=== PATIENT | female | born 1990 | race African-American/Black ===

== ENCOUNTER 2016-09-19 21:17 | Emergency (ER) | payer MEDICAID ==
[2016-09-19 21:31] VITALS: BP 146/102
== END 2016-09-19 22:30 | disposition left against medical advice (07) ==
LOC: ER 21:17
DX: Z53.9 Procedure and treatment not carried out, unspecified reason (principal); R51 Headache

== ENCOUNTER 2017-03-13 20:35 | Emergency (ER) | payer MEDICAID ==
[2017-03-13 20:52] VITALS: BP 127/93
[2017-03-13 22:00] LABS: APPEARANCE,URINE CLEAR; BILIRUBIN,URINE NEGATIVE (NEGATIVE); GLUCOSE, URINE NEGATIVE (NEGATIVE); KETONES,URINE 20 mg/dL (NEGATIVE); LEUKOCYTE ESTERASE,URINE NEGATIVE (NEGATIVE); NITRITE,URINE POSITIVE (NEGATIVE); PROTEIN,URINE 30 mg/dL (NEGATIVE); URINE SPECIFIC GRAVITY 1.027
[2017-03-13 22:57] LABS: ABSOLUTE EOSINOPHILS # (AUTO) 0.1 10^3/uL (0.0-0.6); ABSOLUTE LYMPHOCYTES (AUTO) 1.4 10^3/uL (0.5-4.7); ABSOLUTE MONOCYTES (AUTO) 0.3 10^3/uL (0.1-1.4); ABSOLUTE NEUT (AUTO) 2.8 10^3/uL (1.7-8.2); EOSINOPHILS % (AUTO) 2.1 % (0-6); HEMATOCRIT 27.4 % (36.0-47.0); HEMOGLOBIN 8.2 g/dL (12.0-15.5); HGB HCT DIFFERENCE -2.8; LYMPHOCYTES % (AUTO) 30.2 % (13-45); MEAN CORPUSCULAR HGB CONC 29.9 g/dL (32.0-36.0); RED CELL DISTRIBUTION WIDTH 18.8 % (11.5-14.0); SEGMENTED NEUTROPHILS % (AUTO) 59.7 % (42-78); WHITE BLOOD COUNT 4.7 10^3/uL (4.0-10.5)
[2017-03-13 23:12] LABS: ALANINE AMINOTRANSFERASE 25 U/L (9-52); ALBUMIN 4.3 g/dL (3.5-5.0); ALKALINE PHOSPHATASE 56 U/L (38-126); ANION GAP 11 (5-19); ASPARTATE AMINO TRANSFERASE 20 U/L (14-36); BILIRUBIN,DIRECT 0.2 mg/dL (0.0-0.4); BILIRUBIN,TOTAL 0.5 mg/dL (0.2-1.3); BLOOD UREA NITROGEN 12 mg/dL (7-20); CALCIUM 9.5 mg/dL (8.4-10.2); CARBON DIOXIDE 24 mmol/L (22-30); CHLORIDE 105 mmol/L (98-107); GLUCOSE 106 mg/dL (75-110); LIPASE 77.2 U/L (23-300); POTASSIUM 4.1 mmol/L (3.6-5.0); TOTAL PROTEIN 7.6 g/dL (6.3-8.2)
[2017-03-13 23:22] LABS: ANISOCYTOSIS 2+; HYPOCHROMASIA 2+; MICROCYTOSIS 3+; OVALOCYTES 1+; POIKILOCYTOSIS 1+; POLYCHROMASIA SLIGHT; TEAR DROP CELLS SLIGHT
[2017-03-13 23:23] LABS: MEAN CORPUSCULAR VOLUME 64 fl (80-97)
[2017-03-13] MEDS ORDERED: ONDANSETRON HCL INJ/PF 4 MG/2 ML SDV IV ONE (23:42)
[2017-03-13] MEDS ORDERED: NORMAL SALINE 1000 ML 1,000 ML IV ONE (23:42)
[2017-03-13] MEDS ORDERED: MORPHINE SULFATE 10 MG/ML INJ IV PRN (23:42)
--- NOTE | 2017-03-14 00:41 | ER Document Report ---
ED General - General Chief Complaint: Abdominal Pain Stated Complaint: ABDOMINAL PAIN Notes: Patient is a 26-year-old female without past medical history, prior C-sections, who presents with 24 hours of right lower quadrant abdominal pain nausea and anorexia. She does describe the pain in the right lower quadrant as a severe, constant, aching pain. Notes that movement worsens the pain. Nothing improves the pain. She denies any history of similar symptoms in the past. Patient states that 2 days ago she did begin develop dysuria and lower abdominal discomfort. She took 2 tablets of an unspecified antibiotic with some improvement of her symptoms but states they returned today. She has not had any fever or constitutional symptoms. She has not seen a primary care doctor regarding today's concerns. She denies any vaginal bleeding or discharge. She denies any ongoing dysuria. TRAVEL OUTSIDE OF THE [place] IN LAST 30 DAYS: No - Related Data Allergies/Adverse Reactions: oxycodone HCl [From Percocet] Allergy (Mild, Verified 03/13/17 20:46) rash Past Medical History - General Information source: Patient - Social History Smoking Status: Never Smoker Frequency of alcohol use: None Drug Abuse: None Lives with: Spouse/Significant other Family History: Reviewed & Not Pertinent - Past Medical History Cardiac Medical History: Reports: Hx Hypertension - GHTN after 4th child Neurological Medical History: Reports: Hx Migraine Renal/ Medical History: Denies: Hx Peritoneal Dialysis Past Surgical History: Reports: Hx Section - x 4, Hx Orthopedic Surgery - c 4-6 fusion - Immunizations Hx Diphtheria, Pertussis, Tetanus Vaccination: Yes Review of Systems - Review of Systems Notes: Constitutional: Negative for fever. HENT: Negative for sore throat. Eyes: Negative for visual changes. Cardiovascular: Negative for chest pain. Respiratory: Negative for shortness of breath. Gastrointestinal: Positive for abdominal pain and nausea Genitourinary: Negative for dysuria. Musculoskeletal: Negative for back pain. Skin: Negative for rash. Neurological: Negative for headaches, weakness or numbness. 10 point ROS negative except as marked above and in HPI. Physical Exam - Vital signs Vitals: Temp Pulse Resp BP Pulse Ox 99.4 F 90 18 127/93 H 100 03/13/17 20:45 03/13/17 20:45 03/13/17 20:45 03/13/17 20:45 03/13/17 20:45 Interpretation: Normal Notes: PHYSICAL EXAMINATION: GENERAL: Well-appearing, well-nourished and in no acute distress. HEAD: Atraumatic, normocephalic. EYES: Pupils equal round and reactive to light, extraocular movements intact, sclera anicteric, conjunctiva are normal. ENT: nares patent, oropharynx clear without exudates. Moist mucous membranes. NECK: Normal range of motion, supple without lymphadenopathy LUNGS: Breath sounds clear to auscultation bilaterally and equal. No wheezes rales or rhonchi. HEART: Regular rate and rhythm without murmurs ABDOMEN: Soft, focal right lower quadrant abdominal tenderness without rebound or guarding. Otherwise no localized tenderness EXTREMITIES: Normal range of motion, no pitting or edema. No cyanosis. NEUROLOGICAL: No focal neurological deficits. Moves all extremities spontaneously and on command. PSYCH: Normal mood, normal affect. SKIN: Warm, Dry, normal turgor, no rashes or lesions noted. Course - Re-evaluation Re-evalutation: 03/14/17 00:40 Patient presents with 24 hours of right lower quadrant abdominal pain with associated nausea and anorexia. She does have focal right lower quadrant abdominal tenderness on palpation without rebound or guarding. There is a moderate suspicion for an acute appendicitis based on exam and history. Laboratories are noted to be unremarkable. Patient has been taking leftover antibiotics which will skew the results of her urinalysis which does suggest a possible urinary tract infection. She has also been complaining of dysuria although she has no flank tenderness on examination no significant tenderness to the suprapubic region. Will proceed with CT abdomen pelvis and reassess 03/14/17 02:44 CT abdomen pelvis does not show any evidence of an acute appendicitis with the appendix being well visualized. There is a large right ovarian cyst which would account for patient having more of a right adnexal tenderness versus right lower quadrant abdominal tenderness. Will provide analgesia and recommend [facility]YCL[facility] ASSISTANT follow-up as an outpatient. At this time will discharge with return precautions and follow-up recommendations. Verbal discharge instructions given a the bedside and opportunity for questions given. Medication warnings reviewed. Patient is in agreement with this plan and has verbalized understanding of return precautions and the need for primary care follow-up in the next 24-72 hours. - Vital Signs Vital signs: Temp Pulse Resp BP Pulse Ox 99.4 F 90 18 127/93 H 100 03/13/17 20:45 03/13/17 20:45 03/13/17 20:45 03/13/17 20:45 03/13/17 20:45 - Laboratory Result Diagrams: 03/13/17 22:37 03/13/17 22:37 Laboratory results interpreted by me: 03/13/17 03/13/17 03/13/17 21:45 22:37 22:37 Hgb 8.2 L Hct 27.4 L MCV 64 L MCH 19.0 L MCHC 29.9 L RDW 18.8 H Creatinine 0.50 L Urine Protein 30 H Urine Ketones 20 H Urine Nitrite POSITIVE H Urine Urobilinogen 4.0 H - Diagnostic Test Radiology reviewed: Reports reviewed Discharge - Discharge Clinical Impression: Right lower quadrant abdominal pain, Right ovarian cyst Condition: Good Disposition: HOME, SELF-CARE Additional Instructions: Your CT scan does not show any evidence of an acute appendicitis but does show a right ovarian cyst. For your pain: Take ibuprofen 600 mg and acetaminophen 1000 mg every 6 hours together as needed for pain. If this does not control your pain you may take 15 mg of oral morphine every 4 hours as needed. Please be very careful about using the oral morphine and only use this for severe pain. Return if your worsening of your pain, persistent vomiting, pass out, or have any other symptoms that are worrisome to you. Prescriptions: Morphine Sulfate [Morphine Ir 15 mg Tablet] 15 mg PO Q4HP PRN #12 tablet PRN Reason: Referrals: ARNOL YATES MD [Primary Care Provider] - Follow up as needed SHAN GAVIRIA DO [[facility]] - Follow up as needed
--- NOTE | 2017-03-14 02:26 | RADIOLOGY REPORT (SQ) ---
EXAMINATION: POSTCONTRAST ABDOMEN AND PELVIC CT EXAMINATION. REFERRAL DIAGNOSIS: Lower quadrant abdominal pain. COMPARISONS: No comparisons are available. PROCEDURE: Using low-dose helical technique, thin section axial images were performed through the abdomen and pelvis after the uncomplicated intravenous administration of nonionic iodinated contrast material. Creatinine equals 0.50. FINDINGS: The gas-filled appendix clearly visualized and appears normal. No diverticulitis or inflammatory bowel disease. Noncalcified probable 2.5 cm right ovarian cyst. Uterus is grossly normal. Bilateral tubal ligation clips. No free pelvic fluid or pelvic lymphadenopathy. The liver, spleen, fluid-filled gallbladder, pancreas, stomach, duodenum, adrenal glands kidneys and urinary bladder appear normal. Bones are normal. IMPRESSION: 1. 2.5 cm probable right ovarian cyst. No follow-up recommendations as described in the following reference. Recommendations for f/u of ovarian anechoic simple cyst, simple cyst with single thin <3 mm septation, or focal calcification in wall of cyst (1): Pre-menopause: <= 5 cm No follow-up imaging recommended >5 cm - <=7 cm US f/u annually >7 cm Consider MR w/IVC or surgical evaluation Post-menopause (>=1 year from last menstrual period): <=3 cm No follow-up imaging recommended >3 cm - <=7 cm US f/u annually >7 cm Consider MR w/IVC or surgical evaluation (1) Recommendations based on 2010 SRU Consensus Conference Statement on the Management of Asymptomatic Ovarian and Other Adnexal Cysts Imaged at US: Radiology. 2009;256(3):943-54
[2017-03-14] MEDS ORDERED: LIDOCAINE 5% (700 MG) TRANSDERMAL ADH..PATCH TP ONE (02:48)
[2017-03-14] MEDS ORDERED: KETOROLAC TROMETHAMINE INJ/PF 30 MG/1 ML SDV IV ONE (02:48)
[2017-03-15 14:11] LABS: PATH REVIEW PATHOLOGIST REVIEWED
== END 2017-03-14 03:20 | disposition home or self-care (01) ==
LOC: ER 20:35
DX: N83.201 Unspecified ovarian cyst, right side (principal); R10.31 Right lower quadrant pain; R11.0 Nausea; R63.0 Anorexia; R30.0 Dysuria; Z88.5 Allergy status to narcotic agent
CPT/HCPCS: 99284; 96374; 36415; 83690; 85025; 81025; 80053; 81001; 74177; J1885; J3490

== ENCOUNTER 2017-05-28 08:52 | Emergency (ER) | payer MEDICAID ==
[2017-05-28 09:11] VITALS: BP 121/87
--- NOTE | 2017-05-28 09:22 | ER Document Report ---
ED GI/ - General Chief Complaint: Abdominal Pain Stated Complaint: ABDOMINAL PAIN Time Seen by Provider: 05/28/17 09:21 Mode of Arrival: Ambulatory Information source: Patient Notes: 27-year-old female complaining of intermittent low midline suprapubic discomfort nausea after eating since earlier this week. No vaginal discharge. She is complaining of urinary urgency but no dysuria or frequency. No fever or chills. No diarrhea or constipation. , 4 C-sections, tubal clamping-1 failed (unsure which), history of ovarian cyst which is different than this pain. She does not have any pain at this time. TRAVEL OUTSIDE OF THE [place] IN LAST 30 DAYS: No - Related Data Allergies/Adverse Reactions: oxycodone HCl [From Percocet] Allergy (Mild, Verified 05/28/17 09:44) rash Past Medical History - General Information source: Patient - Social History Smoking Status: Current Every Day Smoker - vapes nicotine Frequency of alcohol use: None Drug Abuse: None Lives with: Spouse/Significant other Family History: Reviewed & Not Pertinent - Medical History Notes: anemia - Past Medical History Cardiac Medical History: Reports: Hx Hypertension - GHTN after 4th child Neurological Medical History: Reports: Hx Migraine Renal/ Medical History: Denies: Hx Peritoneal Dialysis Past Surgical History: Reports: Hx Section - x 4, Hx Orthopedic Surgery - c 4-6 fusion - Immunizations Hx Diphtheria, Pertussis, Tetanus Vaccination: Yes Review of Systems - Review of Systems Constitutional: No symptoms reported EENT: No symptoms reported Cardiovascular: No symptoms reported Respiratory: No symptoms reported Gastrointestinal: See HPI Genitourinary: No symptoms reported Female Genitourinary: No symptoms reported Musculoskeletal: No symptoms reported Skin: No symptoms reported Hematologic/Lymphatic: No symptoms reported Neurological/Psychological: No symptoms reported Physical Exam - Vital signs Vitals: Temp Pulse Resp BP Pulse Ox 98.6 F 87 14 121/87 H 100 05/28/17 09:10 05/28/17 09:10 05/28/17 09:10 05/28/17 09:10 05/28/17 09:10 Interpretation: Normal - General General appearance: Appears well, Alert In distress: None - HEENT Head: Normocephalic, Atraumatic Eyes: Normal Conjunctiva: Normal Pupils: PERRL Tympanic membrane: Normal Mucous membranes: Normal Pharynx: Normal Neck: Supple. No: Lymphadenopathy - Respiratory Respiratory status: No respiratory distress Chest status: Nontender Breath sounds: Normal Chest palpation: Normal - Cardiovascular Rhythm: Regular Heart sounds: Normal auscultation Murmur: No - Abdominal Inspection: Normal Distension: No distension Bowel sounds: Normal Tenderness: Tender - mild suprapubic Organomegaly: No organomegaly - Genitourinary External exam: Normal Speculum exam: Normal Vaginal bleeding: None Bimanuel exam: Normal - Back Back: Normal, Nontender. No: CVA tenderness - Extremities General upper extremity: Normal inspection, Nontender, Normal color, Normal ROM , Normal temperature General lower extremity: Normal inspection, Nontender, Normal color, Normal ROM , Normal temperature, Normal weight bearing. No: Owen's sign - Neurological Neuro grossly intact: Yes Cognition: Normal Orientation: AAOx4 [place] Coma Scale Eye Opening: Spontaneous [place] Coma Scale Verbal: Oriented Fabian Coma Scale Motor: Obeys Commands [place] Coma Scale Total: 15 Speech: Normal Motor strength normal: LUE, RUE, LLE, RLE Sensory: Normal - Psychological Associated symptoms: Normal affect, Normal mood - Skin Skin Temperature: Warm Skin Moisture: Dry Skin Color: Normal Course - Re-evaluation Re-evalutation: 05/28/17 10:52 no dizziness when stands. Microcytic hemoglobin is 7.8. She is not having heavy menses at this time. She takes 1 [id number] iron per day. 05/28/17 11:11 Wet prep is negative and the gonorrhea and Chlamydia are pending. - Vital Signs Vital signs: Temp Pulse Resp BP Pulse Ox 98.6 F 87 14 121/87 H 100 05/28/17 09:10 05/28/17 09:10 05/28/17 09:10 05/28/17 09:10 05/28/17 09:10 - Laboratory Result Diagrams: 05/28/17 09:30 05/28/17 09:30 Laboratory results interpreted by me: 05/28/17 05/28/17 09:30 09:30 Hgb 7.8 L Hct 26.3 L MCV 63 L MCH 18.7 L MCHC 29.5 L RDW 19.6 H Chloride 109 H Creatinine 0.46 L Discharge - Discharge Clinical Impression: chronic anemia, Lower abdominal pain Condition: Good Disposition: HOME, SELF-CARE Instructions: Abdominal Pain ([facility]), Anemia, Iron Deficiency ([facility]) Additional Instructions: Take iron twice a day, take stool softeners he will not get constipated Follow up with [facility] as they are your primary care doctor Call me in 3 hours for the pelvic culture results at [phone] return to the er if worse copy of labs given to you Referrals: REUBEN YOUNG MD [Primary Care Provider] - Follow up as needed
[2017-05-28 09:49] LABS: ABSOLUTE EOSINOPHILS # (AUTO) 0.1 10^3/uL (0.0-0.6); ABSOLUTE MONOCYTES (AUTO) 0.2 10^3/uL (0.1-1.4); ABSOLUTE NEUT (AUTO) 2.7 10^3/uL (1.7-8.2); EOSINOPHILS % (AUTO) 1.3 % (0-6); HEMATOCRIT 26.3 % (36.0-47.0); HGB HCT DIFFERENCE -2.9; LYMPHOCYTES % (AUTO) 25.5 % (13-45); MEAN CORPUSCULAR HEMOGLOBIN 18.7 pg (27.0-33.4); MEAN CORPUSCULAR HGB CONC 29.5 g/dL (32.0-36.0); MONOCYTES % (AUTO) 5.9 % (3-13); RED BLOOD COUNT 4.15 10^6/uL (3.72-5.28); RED CELL DISTRIBUTION WIDTH 19.6 % (11.5-14.0); SEGMENTED NEUTROPHILS % (AUTO) 66.3 % (42-78); WHITE BLOOD COUNT 4.1 10^3/uL (4.0-10.5)
[2017-05-28 09:56] LABS: HEMOGLOBIN 7.8 g/dL (12.0-15.5)
[2017-05-28 10:03] LABS: ALANINE AMINOTRANSFERASE 17 U/L (9-52); ALBUMIN 4.5 g/dL (3.5-5.0); ALKALINE PHOSPHATASE 53 U/L (38-126); ANION GAP 12 (5-19); ASPARTATE AMINO TRANSFERASE 24 U/L (14-36); BILIRUBIN,DIRECT 0.2 mg/dL (0.0-0.4); BILIRUBIN,TOTAL 0.2 mg/dL (0.2-1.3); BLOOD UREA NITROGEN 15 mg/dL (7-20); CALCIUM 9.5 mg/dL (8.4-10.2); CARBON DIOXIDE 23 mmol/L (22-30); CHLORIDE 109 mmol/L (98-107); CREATININE RESULT 0.46 mg/dL (0.52-1.25); GLUCOSE 102 mg/dL (75-110); LIPASE 139.4 U/L (23-300); POTASSIUM 4.2 mmol/L (3.6-5.0); SODIUM 143.9 mmol/L (137-145); TOTAL PROTEIN 7.6 g/dL (6.3-8.2)
[2017-05-28 10:04] LABS: APPEARANCE,URINE CLEAR; BILIRUBIN,URINE NEGATIVE (NEGATIVE); GLUCOSE, URINE NEGATIVE (NEGATIVE); KETONES,URINE NEGATIVE (NEGATIVE); LEUKOCYTE ESTERASE,URINE NEGATIVE (NEGATIVE); NITRITE,URINE NEGATIVE (NEGATIVE); PROTEIN,URINE NEGATIVE (NEGATIVE); UROBILINOGEN,URINE NEGATIVE mg/dL (<2.0)
[2017-05-28 10:14] LABS: MEAN CORPUSCULAR VOLUME 63 fl (80-97)
[2017-05-28 10:16] LABS: ANISOCYTOSIS 2+; MICROCYTOSIS 3+; OVALOCYTES SLIGHT; POIKILOCYTOSIS SLIGHT; POLYCHROMASIA SLIGHT; ROULEAUX SLIGHT
[2017-05-28 10:17] LABS: HYPOCHROMASIA 1+
[2017-06-01 10:57] LABS: PATH REVIEW PATHOLOGIST REVIEWED
== END 2017-05-28 11:25 | disposition home or self-care (01) ==
LOC: ER 08:52
DX: D64.9 Anemia, unspecified (principal); R10.30 Lower abdominal pain, unspecified; R39.15 Urgency of urination; F17.200 Nicotine dependence, unspecified, uncomplicated
CPT/HCPCS: 36415; 80053; 81001; 83690; 84703; 85025; 87086; 87210; 87491; 87591; 99284

== ENCOUNTER 2017-11-10 09:33 | Day surgery (SDC) | payer MEDICAID ==
[~2017-11-10 09:33] MED LIST: CEFAZOLIN 1 GM/D5W RTU 1 GM/50 ML RTUPB IV PRN
[2017-11-10] MEDS ORDERED: LIDOCAINE 0.5% INJ-PF (5 MG/ML) 50 ML SDV ONE (10:00)
[2017-11-10] MEDS ORDERED: BUPIVACAINE HCL 0.25 % INJ/PF (2.5 MG/1 ML) 30 ML VIAL ONE (10:00)
[2017-11-10 10:24] LABS: HEMATOCRIT 24.8 % (36.0-47.0); MEAN CORPUSCULAR HEMOGLOBIN 18.3 pg (27.0-33.4); MEAN CORPUSCULAR HGB CONC 29.9 g/dL (32.0-36.0); PLATELET COUNT 254 10^3/uL (150-450); RED BLOOD COUNT 4.04 10^6/uL (3.72-5.28); RED CELL DISTRIBUTION WIDTH 19.7 % (11.5-14.0); WHITE BLOOD COUNT 3.2 10^3/uL (4.0-10.5)
[2017-11-10 11:33] LABS: HEMOGLOBIN 7.4 g/dL (12.0-15.5)
[2017-11-10 11:34] LABS: MEAN CORPUSCULAR VOLUME 61 fl (80-97)
[2017-11-10] MEDS ORDERED: FENTANYL CITRATE INJ/PF 100 MCG/2 ML AMPUL ONE (12:01)
[2017-11-10] MEDS ORDERED: KETAMINE HCL INJ 500 MG/10 ML VIAL ONE (12:01)
[2017-11-10] MEDS ORDERED: MIDAZOLAM 2 MG/2 ML INJ ONE (12:02)
[2017-11-10] MEDS ORDERED: ACETAMINOPHEN 1,000 MG/100 ML RTUPB IV ONE (12:02)
[2017-11-10] MEDS ORDERED: PROPOFOL INJ 200 MG/20 ML VIAL IV ONE (12:02)
[2017-11-10] MEDS ORDERED: MICROFIBRILLAR COLLAGEN 1 GM PACK ONE (13:10)
--- NOTE | 2017-11-10 13:33 | Operative Report ---
Operative Report DATE OF SURGERY: 11/10/17 PREOPERATIVE DIAGNOSIS: Right wrist ganglion cyst, dorsal aspect POSTOPERATIVE DIAGNOSIS: Same OPERATION: Complete excision of right wrist dorsal aspect ganglion cyst SURGEON: REUBEN HILLS SWIFT TENDER: ERMIAS GERMAN ANESTHESIA: LMAC TISSUE REMOVED OR ALTERED: Right wrist ganglion cyst and contents COMPLICATIONS: None ESTIMATED BLOOD LOSS: 10 cc INTRAOPERATIVE FINDINGS: See below PROCEDURE: The patient was seen in the preop holding area the right wrist was marked. She was then taken to the main operating room where LMAC anesthesia was induced. The right arm was prepped and draped in sterile fashion. Surgical plan surgical timeout were conducted. The findings were significant for a multilobulated gland cyst on the dorsal aspect of the right wrist. Markings were made on the skin for a small transverse incision. The skin was anesthetized with 1% plain lidocaine. Approximately 2-1/2-3 cm incision was made with the knife. The underlying subcutaneous tissue was spread, and the multi lobulated chronic ganglion cyst was dissected from its surrounding tissue all the way to its point of origination which was the synovial sheath of the extensor compartment of the mid section of the right wrist. We placed a small hemostat at the base of the cyst which was in fact the urination point of the cyst which is approximately 1 cm in diameter. The cyst was amputated and passed off to pathology. The neck of the cyst was oversewed with a 2-0 Vicryl suture effectively ligating the stalk. Hemostasis was achieved using direct pinpoint cautery primarily to the sheath edge. Avitene was placed in the recess of the wound, the wound was closed including the extensor retinaculum with 3-0 Vicryl and the skin with 3-0 Vicryl and 4-0 Monocryl. Dermabond glue was applied. Bulky dressing applied. Patient tolerated procedure well, taken to recovery room in stable condition.
[2017-11-10] MEDS ORDERED: ONDANSETRON HCL INJ/PF 4 MG/2 ML SDV IV PRN (13:39)
[2017-11-10] MEDS ORDERED: DIPHENHYDRAMINE HCL 50 MG/ML VIAL IV PRN (13:39)
[2017-11-10] MEDS ORDERED: PROMETHAZINE HCL INJ 25 MG/1 ML VIAL IV PRN ×2 (13:39)
[2017-11-10] MEDS ORDERED: FENTANYL CITRATE INJ/PF 100 MCG/2 ML AMPUL IV PRN ×3 (13:39)
[2017-11-10] MEDS ORDERED: MEPERIDINE HCL/PF INJ 25 MG/1 ML DISP.SYRIN IV PRN (13:39)
--- NOTE | 2017-11-10 15:55 | Discharge Summary ---
Discharge Summary (SDC) - Discharge Final Diagnosis: ganglion cyst Date of Surgery: 11/10/17 Discharge Date: 11/10/17 Condition: Stable Forms: ASU Anesthesia D/C Instruction, Discharge POC-Surgical Service Treatment or Instructions: WOUND CARE: 1) Leave outer dressing intact for two days. At which point you may remove the dressing but leave steri strips and skin glue beneath in place. Cover dressing with large band aid or gauze and tape after removal of outer dressing. 2) Once outer gauze is removed, you may shower with warm water and soap, pat the area dry, and cover again. 3) Keep are elevated. Pain management: 1) You make take one Toradol by mouth every six hours as needed for pain. FOLLOW UP: 1) You may follow up at [facility] in 10-14 days. Call clinic with any questions/concerns. Prescriptions: Ketorolac Tromethamine [Toradol 10 mg Tablet] 10 mg PO Q6HP PRN #20 tablet PRN Reason: Referrals: REUBEN RUBY MD [ACTIVE STAFF] - 11/22/17 1:15 pm Discharge Diet: As Tolerated Respiratory Treatments at Home: Deep Breathing/Coughing Discharge Activity: Activity As Tolerated, Balance Activity w/Rest, No Lifting Over 10 Pounds, No Lifting/Push/Pulling, Slowly Increase Activity, Walk Frequently Home Care Assistance: None Needed Report the Following to Your Physician Immediately: Shortness of Breath, Nausea , Vomiting, Increase in Pain, Fever over 101 Degrees, Unusual Bleeding, Redness , Swelling, Warmth, Increased Soreness, Drainage-Foul Smelling, Numbness, Tingling Sensation, IV Site Infection Signs
[2017-11-10 15:57] VITALS: BP 121/76
[2017-11-10] MEDS ORDERED: LIDOCAINE 2% INJ-PF (20 MG/ML) 2 ML AMPUL ONE (20:40)
[2017-11-10] MEDS ORDERED: METOCLOPRAMIDE HCL INJ/PF 10 MG/2 ML SDV ONE (20:40)
[2017-11-10] MEDS ORDERED: GLYCOPYRROLATE INJ 0.4 MG/2 ML VIAL ONE (20:40)
[2017-11-10] MEDS ORDERED: KETOROLAC TROMETHAMINE 60 MG/2 ML SDV ONE (20:40)
[2017-11-10] MEDS ORDERED: ONDANSETRON HCL INJ/PF 4 MG/2 ML SDV ONE (20:40)
[2017-11-10] MEDS ORDERED: DEXAMETHASONE SOD PHOSPHATE INJ 4 MG/1 ML VIAL ONE (20:40)
== END 2017-11-10 16:00 | disposition home or self-care (01) ==
LOC: OROUT 09:33
PROVIDERS: ATTEND Surgery
DX: M67.431 Ganglion, right wrist (principal); R06.02 Shortness of breath; Z88.5 Allergy status to narcotic agent
CPT/HCPCS: 36415; 85027; 81025; 88304 ×2; 25111; J2250; J0690; J1100; J1885; J3010; J3490 ×5; J2765; J2405; S0020; J2704; J0131; 1810

== ENCOUNTER 2017-12-17 17:06 | Emergency (ER) | payer MEDICAID ==
[2017-12-17] MEDS ORDERED: KETOROLAC TROMETHAMINE 60 MG/2 ML SDV IM ONE (17:14)
--- NOTE | 2017-12-17 17:17 | ER Document Report ---
ED General - General Chief Complaint: Headache Stated Complaint: HEADACHE Time Seen by Provider: 12/17/17 17:13 Mode of Arrival: Ambulatory Information source: Patient TRAVEL OUTSIDE OF THE [place] IN LAST 30 DAYS: No - HPI Patient complains to provider of: CASTAÑEDA and dysuria Onset: Other - pt with c/o CASTAÑEDA similar to previous ones but just hasn't totally resolved in 2 days. Also , c/o dysuria - Related Data Allergies/Adverse Reactions: oxycodone HCl [From Percocet] Allergy (Mild, Verified 12/17/17 17:07) rash Past Medical History - General Information source: Patient - Social History Smoking Status: Never Smoker Chew tobacco use (# tins/day): No Frequency of alcohol use: None Drug Abuse: None Family History: Reviewed & Not Pertinent Patient has suicidal ideation: No Patient has homicidal ideation: No - Past Medical History Cardiac Medical History: Reports: Hx Hypertension - WITH Denies: Hx Coronary Artery Disease, Hx Heart Attack Pulmonary Medical History: Denies: Hx Asthma, Hx Bronchitis, Hx COPD, Hx Pneumonia Neurological Medical History: Reports: Hx Migraine. Denies: Hx Cerebrovascular Accident, Hx Seizures Renal/ Medical History: Denies: Hx Peritoneal Dialysis Musculoskeletal Medical History: Denies Hx Arthritis Past Surgical History: Reports: Hx Section - x 4, Hx Orthopedic Surgery - c 4-6 fusion, Hx Tubal Ligation - Immunizations Hx Diphtheria, Pertussis, Tetanus Vaccination: No Review of Systems - Review of Systems EENT: No symptoms reported Cardiovascular: No symptoms reported Respiratory: No symptoms reported Gastrointestinal: No symptoms reported Genitourinary: See HPI, Dysuria Neurological/Psychological: See HPI, Headaches -: Yes All other systems reviewed and negative Physical Exam - Vital signs Vitals: Temp Pulse Resp BP Pulse Ox 99.1 F 97 20 123/89 H 100 12/17/17 17:10 12/17/17 17:10 12/17/17 17:10 12/17/17 17:10 12/17/17 17:10 - General General appearance: Appears well In distress: None - HEENT Head: Normocephalic Pharynx: Normal Neck: Normal - Respiratory Respiratory status: No respiratory distress Breath sounds: Normal - Cardiovascular Rhythm: Regular Heart sounds: Normal auscultation - Neurological Neuro grossly intact: Yes Cognition: Normal Cranial nerves: Normal Course - Re-evaluation Re-evalutation: 12/17/17 18:07 pt. felt better at time of d/c -- CASTAÑEDA relieved. Expressed desire to go home - Vital Signs Vital signs: Temp Pulse Resp BP Pulse Ox 99.1 F 97 20 123/89 H 100 12/17/17 17:10 12/17/17 17:10 12/17/17 17:10 12/17/17 17:10 12/17/17 17:10 - Laboratory Laboratory results interpreted by me: 12/17/17 17:20 Urine Protein >=500 H Urine Blood MODERATE H Ur Leukocyte Esterase LARGE H Discharge - Discharge Clinical Impression: Cephalgia Qualifiers: Headache type: unspecified Headache chronicity pattern: unspecified pattern Intractability: not intractable Qualified Code(s): R51 - Headache UTI (urinary tract infection) Qualifiers: Urinary tract infection type: site unspecified Hematuria presence: without hematuria Qualified Code(s): N39.0 - Urinary tract infection, site not specified Condition: Stable Disposition: HOME, SELF-CARE Instructions: Trimethoprim-Sulfa ([facility]) Additional Instructions: rest, take meds as prescribed, return if worse Prescriptions: Sulfamethoxazole/Trimethoprim [Bactrim Ds Tablet] 1 each PO BID #10 tablet Referrals: JAMMIE MANZO DO [Primary Care Provider] - Follow up as needed
[2017-12-17 17:39] LABS: APPEARANCE,URINE CLOUDY; BILIRUBIN,URINE NEGATIVE (NEGATIVE); COLOR,URINE YELLOW; GLUCOSE, URINE NEGATIVE (NEGATIVE); KETONES,URINE NEGATIVE (NEGATIVE); LEUKOCYTE ESTERASE,URINE LARGE (NEGATIVE); NITRITE,URINE NEGATIVE (NEGATIVE); PROTEIN,URINE >=500 mg/dL (NEGATIVE); URINE SPECIFIC GRAVITY 1.019; UROBILINOGEN,URINE NEGATIVE mg/dL (<2.0)
[2017-12-17 18:19] VITALS: BP 125/88
== END 2017-12-17 18:21 | disposition home or self-care (01) ==
LOC: ER 17:06
DX: N39.0 Urinary tract infection, site not specified (principal); R51 Headache; R30.0 Dysuria
CPT/HCPCS: 99284; 96372; 81025; 81001; J1885

== ENCOUNTER 2018-01-28 11:03 | Outpatient (CLI) | payer MEDICAID ==
[~2018-01-28 11:03] MED LIST changes: -CEFAZOLIN 1 GM/D5W RTU 1 GM/50 ML RTUPB IV PRN; +FERRIC CARBOXYMALTOSE 750 MG in NORMAL SALINE 250 ML IV PRN; +NORMAL SALINE 250 ML IV PRN
[2018-01-28 11:27] VITALS: BP 106/70
== END 2018-01-28 12:09 | disposition home or self-care (01) ==
LOC: II 11:03 → 5TH 11:04 → II 12:09
PROVIDERS: ATTEND Internal Medicine Hematology & Oncology
PROC: 3E033GC Introduction of Other Therapeutic Substance into Peripheral Vein, Percutaneous Approach (ICD-10-PCS; principal; 2018-01-28)
DX: D50.9 Iron deficiency anemia, unspecified (principal); K90.9 Intestinal malabsorption, unspecified
CPT/HCPCS: 96374; J7050; J1439; 96365

== ENCOUNTER 2018-01-30 10:27 | Emergency (ER) | payer MEDICAID ==
--- NOTE | 2018-01-30 10:52 | ER Document Report ---
HPI - HPI Patient complains to provider of: Low back pain Onset: Other - Several days Quality of pain: Achy Pain Level: 5 Context: 27-year-old female complaining of low back pain without any urinary tract symptoms. No fever or chills. She is very concerned. No radiculopathy. No saddle anesthesia. No IV drug use. Strain of cancer. No vaginal discharge. No pelvic or abdominal pain. No rash. Associated Symptoms: None Exacerbated by: Movement Relieved by: Denies - ROS ROS below otherwise negative: Yes Systems Reviewed and Negative: Yes All other systems reviewed and negative - REPRODUCTIVE LMP: 01/14/18 Reproductive: DENIES: : Past Medical History - General Information source: Patient - Social History Smoking Status: Unknown if Ever Smoked Lives with: Family Family History: Reviewed & Not Pertinent - Past Medical History Cardiac Medical History: Reports: Hx Hypertension - WITH Neurological Medical History: Reports: Hx Migraine Past Surgical History: Reports: Hx Section - x 4, Hx Orthopedic Surgery - c 4-6 fusion, Hx Tubal Ligation - Immunizations Hx Diphtheria, Pertussis, Tetanus Vaccination: No Vertical Provider Document - CONSTITUTIONAL Agree With Documented VS: Yes Exam Limitations: No Limitations - INFECTION CONTROL TRAVEL OUTSIDE OF THE [place] IN LAST 30 DAYS: No - HEENT HEENT: Normocephalic - NECK Neck: Supple - RESPIRATORY Respiratory: Breath Sounds Normal, No Respiratory Distress - CARDIOVASCULAR Cardiovascular: Regular Rate, Regular Rhythm - GI/ABDOMEN Gastrointestinal: Abdomen Soft, Abdomen Non-Tender, No Organomegaly - BACK Back: negative: CVA Tenderness-Right, CVA Tenderness-Left - MUSCULOSKELETAL/EXTREMETIES Musculoskeletal/Extremeties: MAEW, FROM, Tender - Mild tender bilateral paraspinal muscles in the lumbar region - NEURO Level of Consciousness: Awake, Alert Motor/Sensory: No Motor Deficit, No Sensory Deficit Deep Tendon Reflexes: 2+ - 2+ bilateral ankle and patellar - DERM Integumentary: No Rash Course - Re-evaluation Re-evalutation: 01/30/18 11:[address] Edouard which recommends getting a CBC, sed rate and CRP if those are negative she can be discharged without imaging. My concern was anything other than mechanical back pain that I was suspecting even though the ROS and red flags are negative. Patient denies any inciting motion since last Wednesday. The pain started Wednesday night while she was supine. 01/30/18 13:19 Urinalysis shows positive nitrite with 2+ bacteria and 21 WBCs. Urine culture has been added. The patient is now requesting a lumbar back x-ray which I have agreed to order for her although I told her I did not think it was any bone fracture, bone arthritis, or bone tumor. CRP is negative at less than 5, CBC white blood cell count is normal and her hemoglobin is now up to 8.1 after the iron infusion on Wednesday. 01/30/18 13:48 Sed rate is 22 which is minimally elevated, the lumbar spine x-ray is negative. I will treat her for urinary tract infection she can follow-up with her primary care doctor. patient had not urinated enough for urine culture and she wants to leave without the urine culture so I canceled the urine culture. 01/30/18 13:55 - Vital Signs Vital signs: Temp Pulse Resp BP Pulse Ox 98.7 F 87 116/78 100 01/30/18 10:45 01/30/18 10:45 01/30/18 10:45 01/30/18 10:45 - Laboratory Result Diagrams: 01/30/18 12:02 Discharge - Discharge Clinical Impression: Low back pain, Urinary tract infection Condition: Good Disposition: HOME, SELF-CARE Instructions: Acetaminophen, Low Back Pain ([facility]), Nitrofurantoin ([facility]), Warm Packs ([facility]) Additional Instructions: Tylenol up to 4000 mg a day for pain Warm compress to your back Antibiotics twice a day for the urinary tract infection Urine culture is pending Follow-up with your primary care doctor if symptoms persist. Return to the emergency room if symptoms worsen Prescriptions: Nitrofurantoin/Nitrofuran Mac [Macrobid 100 mg Capsule] 100 mg PO BID #14 capsule Referrals: JAMMIE MANZO DO [Primary Care Provider] - Follow up tomorrow
[2018-01-30 12:35] LABS: ABSOLUTE EOSINOPHILS # (AUTO) 0.1 10^3/uL (0.0-0.6); ABSOLUTE LYMPHOCYTES (AUTO) 0.9 10^3/uL (0.5-4.7); ABSOLUTE MONOCYTES (AUTO) 0.4 10^3/uL (0.1-1.4); ABSOLUTE NEUT (AUTO) 3.5 10^3/uL (1.7-8.2); EOSINOPHILS % (AUTO) 1.1 % (0-6); HEMATOCRIT 27.4 % (36.0-47.0); HEMOGLOBIN 8.1 g/dL (12.0-15.5); LYMPHOCYTES % (AUTO) 18.9 % (13-45); MEAN CORPUSCULAR HEMOGLOBIN 18.3 pg (27.0-33.4); MEAN CORPUSCULAR HGB CONC 29.4 g/dL (32.0-36.0); MEAN CORPUSCULAR VOLUME 62 fl (80-97); MONOCYTES % (AUTO) 7.6 % (3-13); PLATELET COUNT 259 10^3/uL (150-450); RED BLOOD COUNT 4.41 10^6/uL (3.72-5.28); SEGMENTED NEUTROPHILS % (AUTO) 71.4 % (42-78); TOTAL CELLS COUNTED % (AUTO) 100 %; WHITE BLOOD COUNT 4.9 10^3/uL (4.0-10.5)
[2018-01-30 13:01] LABS: ANISOCYTOSIS 2+; HYPOCHROMASIA 2+; POIKILOCYTOSIS 1+; POLYCHROMASIA SLIGHT
[2018-01-30 13:02] LABS: OVALOCYTES 1+; PLATELET COMMENT ADEQUATE
[2018-01-30 13:04] LABS: APPEARANCE,URINE SLIGHTLY-CLOUDY; BILIRUBIN,URINE NEGATIVE (NEGATIVE); COLOR,URINE YELLOW; GLUCOSE, URINE NEGATIVE (NEGATIVE); KETONES,URINE 20 mg/dL (NEGATIVE); LEUKOCYTE ESTERASE,URINE SMALL (NEGATIVE); NITRITE,URINE POSITIVE (NEGATIVE); PROTEIN,URINE NEGATIVE (NEGATIVE); URINE SPECIFIC GRAVITY 1.023
[2018-01-30 13:21] LABS: ERYTHROCYTE SEDIMENTATION RATE 22 mm/hr (0-20)
[2018-01-30] MEDS ORDERED: NITROFURANTOIN MONOHYD/M-CRYST 100 MG CAPSULE PO ONE (13:21)
[2018-01-30] MEDS ORDERED: ACETAMINOPHEN 325 MG TABLET PO ONE ×2 (13:22→13:51)
--- NOTE | 2018-01-30 13:47 | RADIOLOGY REPORT (SQ) ---
EXAM DESCRIPTION: L SPINE WHOLE COMPLETED DATE/TIME: 01/30/2018 1:36 pm REASON FOR STUDY: low back pain, no injury COMPARISON: None. NUMBER OF VIEWS: Five views including obliques. TECHNIQUE: AP, lateral, oblique, and sacral radiographic images acquired of the lumbar spine. LIMITATIONS: None. FINDINGS: MINERALIZATION: Normal. SEGMENTATION: Normal. No transitional anatomy. ALIGNMENT: Normal. VERTEBRAE: Maintained height. No fracture or worrisome bone lesion. DISCS: Preserved height. No significant osteophytes or end plate irregularity. POSTERIOR ELEMENTS: Pedicles and facets are intact. No pars defect or posterior arch defects. HARDWARE: None in the spine. PARASPINAL SOFT TISSUES: Normal. PELVIS: Intact as visualized. No fractures or worrisome bone lesions. SI joints intact. OTHER: No other significant finding. IMPRESSION: NORMAL 5 VIEW LUMBAR SPINE. TECHNICAL DOCUMENTATION: JOB ID: [id number] [employer]- All Rights Reserved Reading location - IP/workstation name: [email or web address]
[2018-01-30] MEDS ORDERED: IBUPROFEN 400 MG TABLET PO ONE (13:51)
[2018-01-30 14:01] VITALS: BP 128/92
== END 2018-01-30 14:01 | disposition home or self-care (01) ==
LOC: ER 10:27
DX: N39.0 Urinary tract infection, site not specified (principal); M54.5 Low back pain; Z98.890 Other specified postprocedural states
CPT/HCPCS: 99284; 36415; 85025; 85652; 86140; 81001; 72110; J3490 ×3; J8499

== ENCOUNTER 2018-02-04 10:40 | Outpatient (CLI) | payer MEDICAID ==
[2018-02-04 11:11] VITALS: BP 116/82
== END 2018-02-04 11:42 | disposition home or self-care (01) ==
LOC: II 10:40 → 5TH 10:40 → II 11:42
PROVIDERS: ATTEND Internal Medicine Hematology & Oncology
PROC: 3E033GC Introduction of Other Therapeutic Substance into Peripheral Vein, Percutaneous Approach (ICD-10-PCS; principal; 2018-02-04)
DX: D50.9 Iron deficiency anemia, unspecified (principal); K90.9 Intestinal malabsorption, unspecified
CPT/HCPCS: 96367; J7050; J1439; 96374

== ENCOUNTER 2018-05-29 00:32 | Emergency (ER) | payer MEDICAID ==
[2018-05-29 00:51] VITALS: BP 135/92
[2018-05-29] MEDS ORDERED: ACETAMINOPHEN 325 MG TABLET PO ONE (01:21)
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
== END 2018-05-29 02:31 | disposition home or self-care (01) ==
LOC: ER 00:32
PROC: 0HQ3XZZ Repair Left Ear Skin, External Approach (ICD-10-PCS; principal; 2018-05-29)
DX: S01.312A Laceration without foreign body of left ear, initial encounter (principal); H92.02 Otalgia, left ear; Y09 Assault by unspecified means; I10 Essential (primary) hypertension
CPT/HCPCS: 99282; 12011; J3490

== ENCOUNTER 2018-07-05 09:15 | Emergency (ER) | payer MEDICAID ==
[2018-07-05 09:22] VITALS: BP 126/85
--- NOTE | 2018-07-05 09:44 | ER Document Report ---
HPI - HPI Time Seen by Provider: 07/05/18 09:33 Pain Level: 4 Notes: Patient is a 24-year-old female who presents to the ED complaining of nasal congestion/discharge, dry nonproductive cough, fever, body ache 2 days. Her daughter was dx'd with influenza yesterday. Patient states that she is still eating and drinking without difficulties, but does have a decreased p.o. intake. She is still urinating normally having normal bowel movements. Patient has been using some [id number] meds for symptoms. She denies any significant past medical history including cardiopulmonary history and immunocompromised conditions. Patient denies any smoking or IV drug use. Denies any current headache, neck pain, sore throat, chest pain, palpitations, syncope, shortness of breath, wheeze, dyspnea, abdominal pain, nausea/vomiting/diarrhea, urinary retention, dysuria, hematuria, or rash. - ROS Systems Reviewed and Negative: Yes All other systems reviewed and negative - RESPIRATORY Respiratory: REPORTS: Coughing - REPRODUCTIVE Reproductive: DENIES: : Past Medical History - Social History Smoking Status: Never Smoker Frequency of alcohol use: None Drug Abuse: Marijuana Family History: Reviewed & Not Pertinent Patient has suicidal ideation: No Patient has homicidal ideation: No - Past Medical History Cardiac Medical History: Reports: Hx Hypertension - WITH Denies: Hx Coronary Artery Disease, Hx Heart Attack Pulmonary Medical History: Denies: Hx Asthma, Hx Bronchitis, Hx COPD, Hx Pneumonia Neurological Medical History: Reports: Hx Migraine. Denies: Hx Cerebrovascular Accident, Hx Seizures Renal/ Medical History: Denies: Hx Peritoneal Dialysis Musculoskeletal Medical History: Denies Hx Arthritis Past Surgical History: Reports: Hx Section - x 4, Hx Orthopedic Surgery - c 4-6 fusion, Hx Tubal Ligation - Immunizations Hx Diphtheria, Pertussis, Tetanus Vaccination: No Vertical Provider Document - CONSTITUTIONAL Agree With Documented VS: Yes Notes: PHYSICAL EXAMINATION: GENERAL: Well-appearing, well-nourished and in no acute distress. A&Ox4. Answers questions appropriately. Moves comfortably w/o notable distress HEAD: Atraumatic, normocephalic. EYES: Pupils equal round and reactive to light, extraocular movements intact, sclera anicteric, conjunctiva are normal. ENT: EAC clear b/l. TM's intact b/l without erythema, fluid, or perforation. Nares patent and with clear discharge. oropharynx no erythema without exudates. No tonsilar hypertrophy without erythema or exudate. No palatine shift. Uvula midline. No tongue protrusion. No drooling, hoarseness, or airway compromise. Moist mucous membranes. No sinus tenderness. NECK: Normal range of motion, supple without lymphadenopathy. No rigidity/meningismus. LUNGS: Breath sounds clear to auscultation bilaterally and equal. No wheezes rales or rhonchi. No retractions HEART: Regular rate and rhythm without murmurs, rubs, gallops. ABDOMEN: Soft, nontender, nondistended abdomen. No guarding, no rebound. No masses appreciated. Normal bowel sounds present. No CVA tenderness bilaterally. No hepatosplenomegaly. NEUROLOGICAL: Normal speech, normal gait. Normal sensory, motor exams PSYCH: Normal mood, normal affect. SKIN: Warm, Dry, normal turgor, no rashes or lesions noted. - INFECTION CONTROL TRAVEL OUTSIDE OF THE [place] IN LAST 30 DAYS: No Course - Re-evaluation Re-evalutation: 07/05/18 09:49 Patient is an afebrile, well-hydrated, 19-year-old female who presents to the ED with acute URI, suspect influenza. Vitals are acceptable. PE is otherwise unremarkable. No labs or imaging warranted at this time based on H&P. Patient has no significant cardiopulmonary or immunocompromised medical conditions. Patient's lungs are clear to auscultation bilaterally without tachycardia, hypoxia, or tachypnea. Patient is tolerating p.o. without any difficulties. Thoroughly reviewed the risks, benefits, potential side effects, estimated cost without insurance with patient. After thorough review, patient requested Tamiflu at this time. Low suspicion for any meningitis, sepsis, peritonsillar/pharyngeal abscess, respiratory compromise, severe dehydration, or other emergent systemic condition at this time. Patient is aware this condition can change from initial presentation and she needs to monitor symptoms closely. Conservative measures otherwise for symptoms. Recheck with your PCM in 3-5 days. Return to the ED with any worsening/concerning symptoms otherwise as reviewed in discharge. Patient is in agreement. - Vital Signs Vital signs: Temp Pulse Resp BP Pulse Ox 98.2 F 82 16 126/85 H 100 07/05/18 09:21 07/05/18 09:21 07/05/18 09:21 07/05/18 09:21 07/05/18 09:21 Discharge - Discharge Clinical Impression: Acute URI Condition: Stable Disposition: HOME, SELF-CARE Instructions: Upper Respiratory Illness ([facility]) Additional Instructions: Maintain adequate fluid intake Take meds as directed tylenol/ibuprofen as needed over the counter cold medication as needed for symptoms Humidified air may help Wash your hands regularly Wear a mask when coughing F/u: with your PCM in 3-5 days for a recheck Return to the ED with any fever, worsening pain, chest pain, palpitations, syncope, worsening CASTA[place]ED[place], neck pain/stiffness, shortness of breath, wheezing, drooling, trouble swallowing/breathing, abdominal pain, n/v/d, rash, or worsening/concerning symptoms otherwise. Prescriptions: Oseltamivir Phosphate [Tamiflu 75 mg Capsule] 75 mg PO BID #10 capsule Forms: Elevated Blood Pressure Referrals: JAMMIE MANZO DO [Primary Care Provider] - Follow up as needed
== END 2018-07-05 09:50 | disposition home or self-care (01) ==
LOC: ER 09:15
DX: J06.9 Acute upper respiratory infection, unspecified (principal); R09.81 Nasal congestion; R09.89 Other specified symptoms and signs involving the circulatory and respiratory systems; R05 Cough; R50.9 Fever, unspecified; M79.10 Myalgia, unspecified site
CPT/HCPCS: 99283

== ENCOUNTER 2018-08-18 08:28 | Emergency (ER) | payer MEDICAID ==
[2018-08-18] MEDS ORDERED: METOCLOPRAMIDE HCL INJ/PF 10 MG/2 ML SDV IV ONE (10:17)
[2018-08-18] MEDS ORDERED: ACETAMINOPHEN 325 MG TABLET PO ONE (10:17)
[2018-08-18] MEDS ORDERED: DIPHENHYDRAMINE HCL 50 MG/ML VIAL IV ONE (10:17)
[2018-08-18] MEDS ORDERED: NORMAL SALINE 1000 ML 1,000 ML IV ONE ×2 (10:18→12:05)
--- NOTE | 2018-08-18 10:20 | ER Document Report ---
ED Medical Screen (RME) - General Chief Complaint: Headache >24 hrs old Stated Complaint: HEADACHE Time Seen by Provider: 08/18/18 10:19 Primary Care Provider: JAMMIE MANZO DO [Primary Care Provider] - Follow up as needed TRAVEL OUTSIDE OF THE [place] IN LAST 30 DAYS: No - HPI Notes: 08/18/18 10:19 Patient complained of headache which has been ongoing for the past 4 days. Head ache is associated with nausea. She denies any chest pain, shortness of breath, abdominal pain or vomiting. Physical examination is unremarkable. - Related Data Allergies/Adverse Reactions: oxycodone HCl [From Percocet] Allergy (Mild, Verified 08/18/18 08:29) rash Past Medical History - Social History Chew tobacco use (# tins/day): No Frequency of alcohol use: Occasional Drug Abuse: Marijuana - Past Medical History Cardiac Medical History: Reports: Hx Hypertension - WITH Denies: Hx Coronary Artery Disease, Hx Heart Attack Pulmonary Medical History: Denies: Hx Asthma, Hx Bronchitis, Hx COPD, Hx Pneumonia Neurological Medical History: Reports: Hx Migraine. Denies: Hx Cerebrovascular Accident, Hx Seizures Renal/ Medical History: Denies: Hx Peritoneal Dialysis Musculoskeltal Medical History: Denies Hx Arthritis Past Surgical History: Reports: Hx Section - x 4, Hx Orthopedic Surgery - c 4-6 fusion, Hx Tubal Ligation - Immunizations Hx Diphtheria, Pertussis, Tetanus Vaccination: No History of Influenza Vaccine for 03/2017 - 08/2017 Season: No Physical Exam - Vital signs Vitals: Temp Pulse Resp BP Pulse Ox 98.4 F 84 16 134/89 H 100 08/18/18 08:41 08/18/18 08:41 08/18/18 08:41 08/18/18 08:41 08/18/18 08:41 Course - Vital Signs Vital signs: Temp Pulse Resp BP Pulse Ox 98.4 F 84 16 134/89 H 100 08/18/18 08:41 08/18/18 08:41 08/18/18 08:41 08/18/18 08:41 08/18/18 08:41 Doctor's Discharge - Discharge Referrals: JAMMIE MANZO DO [Primary Care Provider] - Follow up as needed
[2018-08-18 10:54] LABS: ABSOLUTE MONOCYTES (AUTO) 0.2 10^3/uL (0.1-1.4); ABSOLUTE NEUT (AUTO) 2.9 10^3/uL (1.7-8.2); BASOPHILS % (AUTO) 0.5 % (0-2); EOSINOPHILS % (AUTO) 1.1 % (0-6); HEMATOCRIT 38.9 % (36.0-47.0); HEMOGLOBIN 13.2 g/dL (12.0-15.5); LYMPHOCYTES % (AUTO) 23.5 % (13-45); MEAN CORPUSCULAR HEMOGLOBIN 31.6 pg (27.0-33.4); MEAN CORPUSCULAR VOLUME 93 fl (80-97); MONOCYTES % (AUTO) 4.7 % (3-13); PLATELET COUNT 219 10^3/uL (150-450); RED BLOOD COUNT 4.18 10^6/uL (3.72-5.28); SEGMENTED NEUTROPHILS % (AUTO) 70.2 % (42-78); TOTAL CELLS COUNTED % (AUTO) 100 %; WHITE BLOOD COUNT 4.1 10^3/uL (4.0-10.5)
[2018-08-18 11:06] LABS: ALANINE AMINOTRANSFERASE 15 U/L (9-52); ALBUMIN 4.5 g/dL (3.5-5.0); ALKALINE PHOSPHATASE 52 U/L (38-126); ANION GAP 8 (5-19); ASPARTATE AMINO TRANSFERASE 17 U/L (14-36); BILIRUBIN,DIRECT 0.2 mg/dL (0.0-0.4); BILIRUBIN,TOTAL 0.3 mg/dL (0.2-1.3); BLOOD UREA NITROGEN 18 mg/dL (7-20); CALCIUM 9.7 mg/dL (8.4-10.2); CARBON DIOXIDE 29 mmol/L (22-30); CHLORIDE 103 mmol/L (98-107); GLUCOSE 86 mg/dL (75-110); POTASSIUM 4.6 mmol/L (3.6-5.0); SODIUM 139.7 mmol/L (137-145); TOTAL PROTEIN 7.2 g/dL (6.3-8.2)
[2018-08-18 11:39] LABS: INTERNATIONAL RATION (INR) 0.95; PROTHROMBIN TIME 13.2 SEC (11.4-15.4)
[2018-08-18 11:57] LABS: APPEARANCE,URINE SLIGHTLY-CLOUDY; BILIRUBIN,URINE NEGATIVE (NEGATIVE); COLOR,URINE YELLOW; GLUCOSE, URINE NEGATIVE (NEGATIVE); KETONES,URINE TRACE mg/dL (NEGATIVE); LEUKOCYTE ESTERASE,URINE NEGATIVE (NEGATIVE); NITRITE,URINE NEGATIVE (NEGATIVE); PROTEIN,URINE NEGATIVE (NEGATIVE); URINE SPECIFIC GRAVITY 1.018; UROBILINOGEN,URINE NEGATIVE mg/dL (<2.0)
--- NOTE | 2018-08-18 12:52 | ER Document Report ---
ED General - General Chief Complaint: Headache >24 hrs old Stated Complaint: HEADACHE Time Seen by Provider: 08/18/18 10:19 Primary Care Provider: JAMMIE MANZO DO [Primary Care Provider] - Follow up as needed TRAVEL OUTSIDE OF THE [place] IN LAST 30 DAYS: No - HPI Notes: 28-year-old female presents to the ED with a history of migraines for complaints of a headache for the last 4 days, patient states that she typically gets headaches prior to her menstrual cycle. States headache is bilateral, throbbing achy. Denies worse headache of life. Has tried nero-[id number] ibuprofen and Tylenol without relief. Last menstrual period was 1 week ago. Patient sees primary care provider for management of her migraines, does not see a neurologist. Patient was given migraine cocktail while in triage and his primary was speaking with patient says states that her headache has resolved. Denies fevers, chills, chest pain,palpitations, shortness of breath, dyspnea, nausea, vomiting, diarrhea, abdominal pain, hematuria,blurred vision, double vision, loss of vision, speech changes, LH, dizziness, syncope, headaches, wheezing, ST, URI, neck pain, weakness, bowel or bladder dysfunction, saddle anesthesia, numbness or tingling in bilateral upper or lower extremities equally, muscle paralysis, weakness in bilateral upper or lower extremities equally or rash. - Related Data Allergies/Adverse Reactions: oxycodone HCl [From Percocet] Allergy (Mild, Verified 08/18/18 08:29) rash Past Medical History - General Information source: Patient - Social History Smoking Status: Never Smoker Chew tobacco use (# tins/day): No Frequency of alcohol use: Occasional Drug Abuse: Marijuana Family History: Reviewed & Not Pertinent Patient has suicidal ideation: No Patient has homicidal ideation: No - Past Medical History Cardiac Medical History: Reports: Hx Hypertension - WITH Denies: Hx Coronary Artery Disease, Hx Heart Attack Pulmonary Medical History: Denies: Hx Asthma, Hx Bronchitis, Hx COPD, Hx Pneumonia Neurological Medical History: Reports: Hx Migraine. Denies: Hx Cerebrovascular Accident, Hx Seizures Renal/ Medical History: Denies: Hx Peritoneal Dialysis Musculoskeletal Medical History: Denies Hx Arthritis Past Surgical History: Reports: Hx Section - x 4, Hx Orthopedic Surgery - c 4-6 fusion, Hx Tubal Ligation - Immunizations Hx Diphtheria, Pertussis, Tetanus Vaccination: No Review of Systems - Review of Systems Constitutional: No symptoms reported EENT: No symptoms reported Cardiovascular: No symptoms reported Respiratory: No symptoms reported Gastrointestinal: No symptoms reported Genitourinary: No symptoms reported Female Genitourinary: No symptoms reported Musculoskeletal: No symptoms reported Skin: No symptoms reported Hematologic/Lymphatic: No symptoms reported Neurological/Psychological: See HPI Physical Exam - Vital signs Vitals: Temp Pulse Resp BP Pulse Ox 98.4 F 84 16 134/89 H 100 08/18/18 08:41 08/18/18 08:41 08/18/18 08:41 08/18/18 08:41 08/18/18 08:41 - Notes Notes: PHYSICAL EXAMINATION: GENERAL: Well-appearing, well-nourished and in no acute distress. HEAD: Atraumatic, normocephalic. EYES: Pupils equal round and reactive to light, extraocular movements intact, conjunctiva are normal. ENT: Nares patent, oropharynx clear without exudates. Moist mucous membranes. NECK: Normal range of motion, supple without lymphadenopathy LUNGS: Breath sounds clear to auscultation bilaterally and equal. No wheezes rales or rhonchi. HEART: Regular rate and rhythm without murmurs ABDOMEN: Soft, nontender, nondistended abdomen. No guarding, no rebound. No masses appreciated. Female : deferred Musculoskeletal: Normal range of motion, no pitting or edema. No cyanosis. NEUROLOGICAL: Cranial nerves grossly intact. Normal speech, normal gait. Normal sensory, motor exams. PERRLA, EOMI. Full motor and sensory function throughout. Cuff Stitcher + 2 equal bilaterally in BUE. Tongue midline. No pronator drift. No ataxia. Neck with APROM. Raises eyebrows. Strength is 5 out of 5 in bilateral upper and lower extremities equally.Speaks in full sentences. No weakness on one side. Romberg gait steady able to walk straight line. Able to recall 5 objects. PSYCH: Normal mood, normal affect. SKIN: Warm, Dry, normal turgor, no rashes or lesions noted. 22-like and then on the other half of a flight Course - Re-evaluation Re-evalutation: 08/18/18 13:41 Presentation of a headache that appears to be most consistent with tension versus migrainous type headache. Headache was not maximal in onset, patient has no focal neurologic deficits, no nuchal rigidity, vital signs within normal limits, no papilledema, and patient is overall well in appearance. Based on clinical history and examination I do not suspect an acute subarachnoid hemorrhage, dural venous sinus thrombosis, acute meningitis, or intercranial mass. Given my low clinical suspicion for any acute life-threatening etiology, I do not feel advanced neuro imaging or laboratory testing is indicated at this time. Will proceed with headache cocktail and reassess.pt afebrile, VSSS and in no distress. On reevaluation of headache which has been resolved with migraine cocktail. CBC CMP unremarkable. Urinalysis shows slight kidney stones, patient has received a bag of IV fluids, patient states her headaches completely resolved. Reevaluation, patient states her headache is 0 out of 10, patient would like to go home. Discussed with patient follow-up with primary care provider, if she develops a fever, vomiting, or static of her life, rash to return to the emergency room immediately. after performing a Medical Screening Examination, I estimate there is LOW risk for ACUTE GLAUCOMA, TEMPORAL ARTERITIS, MENINGITIS, INCRANIAL HEMORRHAGE, or ISCHEMIC STROKE thus I consider the discharge disposition reasonable. I have reevaluated this patient multiple times and no significant life threatening changes are noted. The patient and I have discussed the diagnosis and risks, and we agree with discharging home with close follow-up with the understanding that symptoms and presentations can change. We also discussed returning to the Emergency Department immediately if new or worsening symptoms occur. We have discussed the symptoms which are most concerning (e.g., changing or worsening symptoms, new numbness or weakness, vomi ting, fever) that necessitate immediate return. - Vital Signs Vital signs: Temp Pulse Resp BP Pulse Ox 98.4 F 84 16 134/89 H 100 08/18/18 08:41 08/18/18 08:41 08/18/18 08:41 08/18/18 08:41 08/18/18 08:41 - Laboratory Result Diagrams: 08/18/18 10:25 08/18/18 10:25 Laboratory results interpreted by me: 08/18/18 08/18/18 10:25 11:35 Creatinine 0.47 L Urine Ketones TRACE H Discharge - Discharge Clinical Impression: Headache Condition: Stable Disposition: HOME, SELF-CARE Instructions: Headache ([facility]) Additional Instructions: Headache The physician does not feel that the headache you are experiencing has a serious underlying cause. Most headaches are due to emotional stress, with resultant muscle tension (tension headache). Occasionally, headaches are secondary to changes in the blood vessels of the scalp (vascular headache and migraine headache). Sometimes, a headache is the first symptom of another developing illness, such as a viral infection. You have no evidence of stroke, bleeding, meningitis, or other serious cause of your headache. The treatment of headaches varies with the severity and cause of the pain. Not all headaches need pain shots. In fact, there is evidence that using narcotics for headaches may make them worse in the long run. The physician will determine the therapy that's in your best interest. If you develop a fever, if the headache is different from any you've previously experienced, vomiting, or if the headache progressively worsens, then call your physician at once or go to the emergency room. Increase oral hydration, avoid any caffeine, chocolates etc. prior to year. Since her headaches are induced by your periods. Follow-up with your primary care provider within 24-48 hours. Return immediately for any new or worsening symptoms. Follow up with primary care provider, call tomorrow to make followup appointment. Forms: Return to Work Referrals: JAMMIE MANZO DO [Primary Care Provider] - Follow up as needed SEKOU MOON MD [NO LOCAL MD] - Follow up in 3-5 days ALEX TOLLIVER MD [COMMUNITY BASED STAFF] - Follow up in 3-5 days
[2018-08-18 13:36] VITALS: BP 128/90
== END 2018-08-18 13:35 | disposition home or self-care (01) ==
LOC: ER 08:28
DX: R51 Headache (principal); Z88.6 Allergy status to analgesic agent; Z98.1 Arthrodesis status; Z98.51 Tubal ligation status
CPT/HCPCS: 99283; 96361; 96374; 96375; 36415; 85025; 85610; 85730; 81025; 80053; 81001; J3490; J1200; J2765; J7030

== ENCOUNTER 2019-03-17 07:50 | Emergency (ER) | payer MEDICAID ==
[2019-03-17] MEDS ORDERED: ACETAMINOPHEN 325 MG TABLET PO ONE (09:19)
[2019-03-17] MEDS ORDERED: CETIRIZINE 10 MG TABLET PO ONE (09:19)
[2019-03-17] MEDS ORDERED: IBUPROFEN 600 MG TABLET PO ONE (09:19)
--- NOTE | 2019-03-17 09:21 | ER Document Report ---
HPI - HPI Time Seen by Provider: 03/17/19 09:11 Pain Level: 5 Context: Patient is a 28-year-old female who presents emergency department with a chief complaint of chills, headache, and body aches. She denies any fever. She stated her symptoms started yesterday. She took some Tylenol last night at 1900, but has not continued to take medications. The Tylenol helped a little bit. Denies any past medical history. Does not take any medications on a regular basis. - CONSTITUTIONAL Constitutional: REPORTS: Chills. DENIES: Fever - EENT EENT: REPORTS: Congestion. DENIES: Sore Throat, Ear Pain, Nasal Drainage-Clear, Nasal Drainage-Purulent, Eye problems - NEURO Neurology: REPORTS: Headache. DENIES: Weakness, Vision blurred, Dizzinesss / Vertigo - CARDIOVASCULAR Cardiovascular: DENIES: Chest pain - RESPIRATORY Respiratory: DENIES: Trouble Breathing, Coughing - GASTROINTESTINAL Gastrointestinal: DENIES: Abdominal Pain - REPRODUCTIVE Reproductive: DENIES: : - MUSCULOSKELETAL Musculoskeletal: DENIES: Extremity pain - DERM Skin Color: Normal Skin Problems: None Past Medical History - General Information source: Patient - Social History Smoking Status: Never Smoker Chew tobacco use (# tins/day): No Frequency of alcohol use: Occasional Drug Abuse: None Family History: Reviewed & Not Pertinent Patient has suicidal ideation: No Patient has homicidal ideation: No - Past Medical History Cardiac Medical History: Reports: Hx Hypertension - WITH Denies: Hx Coronary Artery Disease, Hx Heart Attack Pulmonary Medical History: Denies: Hx Asthma, Hx Bronchitis, Hx COPD, Hx Pneumonia Neurological Medical History: Reports: Hx Migraine. Denies: Hx Cerebrovascular Accident, Hx Seizures Renal/ Medical History: Denies: Hx Peritoneal Dialysis Musculoskeletal Medical History: Denies Hx Arthritis Past Surgical History: Reports: Hx Section - x 4, Hx Orthopedic Surgery - c 4-6 fusion, Hx Tubal Ligation - Immunizations Hx Diphtheria, Pertussis, Tetanus Vaccination: No Vertical Provider Document - CONSTITUTIONAL Agree With Documented VS: Yes Exam Limitations: No Limitations General Appearance: No Apparent Distress - INFECTION CONTROL TRAVEL OUTSIDE OF THE [place] IN LAST 30 DAYS: No - HEENT HEENT: Atraumatic, Normocephalic, PERRLA. negative: Pharyngeal Exudate, Pharyngeal Tenderness, Pharyngeal Erythema, Tympanic Membrane Red, Tympanic Membrane Bulging - NECK Neck: Normal Inspection, Supple - RESPIRATORY Respiratory: Breath Sounds Normal, No Respiratory Distress - CARDIOVASCULAR Cardiovascular: Regular Rate, Regular Rhythm Pulses: Normal: Radial - GI/ABDOMEN Gastrointestinal: Abdomen Soft, Abdomen Non-Tender - MUSCULOSKELETAL/EXTREMETIES Musculoskeletal/Extremeties: FROM - NEURO Level of Consciousness: Awake, Alert, Appropriate Motor/Sensory: No Motor Deficit, No Sensory Deficit - DERM Integumentary: Warm, Dry, No Rash Course - Re-evaluation Re-evalutation: 03/17/19 09:33 Presentation is most consistent with a viral upper respiratory infection. Patient is overall well appearance, vitals within normal limits, well-hydrated. Patient denies any headache, neck pain, and has no evidence of meningismus on examination. Lungs are clear bilaterally. No evidence of respiratory distress. Based on clinical exam and history, I do not suspect an acute pneumonia, meningitis, strep pharyngitis, or an acute encephalitis. No laboratory or imaging testing is indicated at this time. Will discharge patient with return precautions and followup recommendations. They are in agreement this plan have verbalized understanding return precautions. - Vital Signs Vital signs: Temp Pulse Resp BP Pulse Ox 99.3 F 87 18 132/93 H 100 03/17/19 07:52 03/17/19 07:52 03/17/19 07:52 03/17/19 07:52 03/17/19 07:52 Discharge - Discharge Clinical Impression: Upper respiratory infection, viral Condition: Stable Disposition: HOME, SELF-CARE Additional Instructions: You were seen today in the emergency department for a headache, cold chills, and body aches. Your symptoms are most consistent with an upper respiratory viral infection. Please take acetaminophen 1000 mg and ibuprofen 600 mg every 6 hours as needed for any body aches or fever. You have been given cetirizine, medication to help with your runny nose. Take 1 tablet every day while you have symptoms. You have also been given Flonase, medication to help with the inflammation in your nose. Place 1 spray to each nostril twice a day. If you develop a fever greater than 100.4 F while on ibuprofen and acetaminophen, develop shortness of breath, difficulty breathing, or any symptoms that are worrisome to you, please return to the emergency department. Prescriptions: Cetirizine HCl [All Day Allergy] 10 mg PO DAILY #30 tablet Fluticasone Propionate [Flonase Nasal Julian 50 Mcg/Julian 16 gm] 2 sprays NASL DAILY #1 inhaler Forms: Return to Work Referrals: JAMMIE MANZO DO [NO LOCAL MD] - Follow up in 3-5 days
[2019-03-17 09:44] VITALS: BP 124/88
== END 2019-03-17 09:42 | disposition home or self-care (01) ==
LOC: ER 07:50
DX: J06.9 Acute upper respiratory infection, unspecified (principal); R51 Headache; M79.10 Myalgia, unspecified site; Z98.1 Arthrodesis status; Z98.51 Tubal ligation status
CPT/HCPCS: 99283; J3490 ×3

== ENCOUNTER 2019-03-30 12:37 | Emergency (ER) | payer MEDICAID ==
--- NOTE | 2019-03-30 14:05 | ER Document Report ---
ED Medical Screen (RME) - General Chief Complaint: Back Pain Stated Complaint: BACK PAIN Time Seen by Provider: 03/30/19 14:03 Primary Care Provider: SANDRA MAY MD [Primary Care Provider] - Follow up as needed Mode of Arrival: Wheelchair Information source: Patient Notes: 28-year-old female presented to ED for complaint of pain all over. She states it starts Wednesday and she was trying to take care of herself but it is continued. She is alert oriented respirations regular and unlabored she does not have a fever. She denies any cough cold or congestion. She states she did break her neck in 2006 and had surgery. She states she has had pain off and on since then. She states she does not want any Tylenol or Motrin at this time that switch she is been taken. We will get a UA and have her seen by another provider. I have greeted and performed a rapid initial assessment of this patient. A comprehensive ED assessment and evaluation of the patient, analysis of test results and completion of medical decision making process will be conducted by an additional ED providers. TRAVEL OUTSIDE OF THE [place] IN LAST 30 DAYS: No - Related Data Allergies/Adverse Reactions: oxycodone HCl [From Percocet] Allergy (Mild, Verified 03/17/19 08:04) rash Past Medical History - Social History Chew tobacco use (# tins/day): No Frequency of alcohol use: Occasional Drug Abuse: None - Past Medical History Cardiac Medical History: Reports: Hx Hypertension - WITH Denies: Hx Coronary Artery Disease, Hx Heart Attack Pulmonary Medical History: Denies: Hx Asthma, Hx Bronchitis, Hx COPD, Hx Pneumonia Neurological Medical History: Reports: Hx Migraine. Denies: Hx Cerebrovascular Accident, Hx Seizures Renal/ Medical History: Denies: Hx Peritoneal Dialysis Musculoskeltal Medical History: Denies Hx Arthritis Past Surgical History: Reports: Hx Section - x 4, Hx Orthopedic Surgery - c 4-6 fusion, Hx Tubal Ligation - Immunizations Hx Diphtheria, Pertussis, Tetanus Vaccination: No Physical Exam - Vital signs Vitals: Temp Pulse Resp BP Pulse Ox 99.3 F 105 H 22 H 130/80 H 100 03/30/19 13:02 03/30/19 13:02 03/30/19 13:02 03/30/19 13:02 03/30/19 13:02 Course - Vital Signs Vital signs: Temp Pulse Resp BP Pulse Ox 99.3 F 105 H 22 H 130/80 H 100 03/30/19 13:02 03/30/19 13:02 03/30/19 13:02 03/30/19 13:02 03/30/19 13:02 Doctor's Discharge - Discharge Referrals: SANDRA MAY MD [Primary Care Provider] - Follow up as needed
[2019-03-30 14:25] LABS: APPEARANCE,URINE SLIGHTLY-CLOUDY; BILIRUBIN,URINE NEGATIVE (NEGATIVE); COLOR,URINE YELLOW; GLUCOSE, URINE NEGATIVE (NEGATIVE); KETONES,URINE 80 mg/dL (NEGATIVE); PROTEIN,URINE 30 mg/dL (NEGATIVE); URINE SPECIFIC GRAVITY 1.018
[2019-03-30] MEDS ORDERED: KETOROLAC TROMETHAMINE INJ/PF 30 MG/1 ML SDV IM ONE (16:41)
[2019-03-30] MEDS ORDERED: ACETAMINOPHEN 325 MG TABLET PO ONE (16:41)
[2019-03-30] MEDS ORDERED: LIDOCAINE 5% (700 MG) TRANSDERMAL ADH..PATCH TP ONE (16:42)
[2019-03-30] MEDS ORDERED: DIAZEPAM 5 MG TABLET PO ONE (16:42)
[2019-03-30] MEDS ORDERED: DEXAMETHASONE SOD PHOS INJ 10 MG/1 ML VIAL IM ONE (16:42)
[2019-03-30] MEDS ORDERED: DIPHENHYDRAMINE HCL 50 MG CAPSULE PO ONE (16:42)
[2019-03-30] MEDS ORDERED: METOCLOPRAMIDE HCL INJ/PF 10 MG/2 ML SDV IM ONE (16:42)
--- NOTE | 2019-03-30 16:46 | ER Document Report ---
HPI - HPI Patient complains to provider of: back pain and headache Time Seen by Provider: 03/30/19 14:03 Pain Level: 4 Context: 28-year-old generally healthy female presents emergency department for chief complaint of right-sided lower back pain with radiculopathy and headache. Patient does have history of migraines and she states it is a typical pain pattern but just a little more intense. All this pain started on Wednesday and patient is tried to take bupropion 800 mg every 6 hours with no relief. Patient denies any urinary retention, saddle anesthesia, fevers, IV drug use, limb paralysis or acute limb weakness, tingling or paresthesias of any extremity. Patient states the headache is typical of previous migraines and did not resolve with the Motrin. No vision changes, no neck stiffness. - REPRODUCTIVE Reproductive: DENIES: : Past Medical History - General Information source: Patient - Social History Smoking Status: Never Smoker Chew tobacco use (# tins/day): No Frequency of alcohol use: Occasional Drug Abuse: None Family History: Reviewed & Not Pertinent Patient has suicidal ideation: No Patient has homicidal ideation: No - Past Medical History Cardiac Medical History: Reports: Hx Hypertension - WITH Denies: Hx Coronary Artery Disease, Hx Heart Attack Pulmonary Medical History: Denies: Hx Asthma, Hx Bronchitis, Hx COPD, Hx Pneumonia Neurological Medical History: Reports: Hx Migraine. Denies: Hx Cerebrovascular Accident, Hx Seizures Renal/ Medical History: Denies: Hx Peritoneal Dialysis Musculoskeletal Medical History: Denies Hx Arthritis Past Surgical History: Reports: Hx Section - x 4, Hx Orthopedic Surgery - c 4-6 fusion, Hx Tubal Ligation - Immunizations Hx Diphtheria, Pertussis, Tetanus Vaccination: No Vertical Provider Document - CONSTITUTIONAL Notes: PHYSICAL EXAMINATION: Reviewed vital signs and charting by RN GENERAL: Alert, interacts well. No acute distress. HEAD: Normocephalic, atraumatic. EYES: Pupils equal and round. Extraocular movements intact. ENT: Oral mucosa moist, tongue midline. NECK: Full range of motion. Trachea midline. LUNGS: Clear to auscultation bilaterally, no wheezes, rales, or rhonchi. No respiratory distress. HEART: Regular rate and rhythm. No murmur ABDOMEN: soft, non-tender. No distention. Bowel sounds present EXTREMITIES: Moves all 4 extremities spontaneously. No edema, No cyanosis. 5 out of 5 strength both distally and proximally bilateral lower extremities. 2+ patellar reflexes bilaterally. No clonus. Sensation grossly intact in the bilateral lower extremities. Patient is able to ambulate without difficulty. PSYCH: Normal affect, normal mood. SKIN: Warm, dry, normal turgor. No rashes or lesions noted. - INFECTION CONTROL TRAVEL OUTSIDE OF THE [place] IN LAST 30 DAYS: No Course - Re-evaluation Re-evalutation: 03/30/19 16:46 Presentation of a well appearing patient complaining of acute on chronic back pain. No rapid progression of symptoms, systemic symptoms including fevers, chills, weight loss, history of recent bacterial infection, bilateral symptoms, numbness, weakness, difficulty walking, urinary retention or bowel incontinence, personal history of cancer, immunosuppression, diabetes, known AAA, or history of IV drug use. Exam is without point tenderness over vertebral bodies, pulsatile abdominal mass, and patient has symmetric and intact lower extremity strength, sensation, and reflexes without clonus. 2+ symmetric medial malleolar and dorsalis pedis pulses Based on history and physical, I have a very low suspicion of a concerning etiology of pain including epidural compression syndrome, spinal infection, transverse myelitis, malignancy, abdominal aortic aneurysm, renal colic, acute lower extremity claudication, neurogenic claudication, ankylosing spondylitis, or other intra-abdominal process. Due to absence of concerning risk factors in history and physical as well as absence of rapidly progressive, severe, or bilat eral symptoms, will defer imaging at this point. - Vital Signs Vital signs: Temp Pulse Resp BP Pulse Ox 99.3 F 105 H 22 H 130/80 H 100 03/30/19 13:02 03/30/19 13:02 03/30/19 13:02 03/30/19 13:02 03/30/19 13:02 - Laboratory Laboratory results interpreted by me: 03/30/19 14:10 Urine Protein 30 H Urine Ketones 80 H Urine Blood MODERATE H Urine Urobilinogen 2.0 H Discharge - Discharge Clinical Impression: Low back pain Qualifiers: Chronicity: acute Back pain laterality: right Sciatica presence: with sciatica Sciatica laterality: sciatica of right side Qualified Code(s): M54.41 - Lumbago with sciatica, right side Condition: Good Disposition: HOME, SELF-CARE Additional Instructions: You have been seen in the Emergency Department (ED) today for back pain. Your workup and exam have not shown any acute abnormalities and you are likely suffering from muscle strain or possible problems with your discs, but there is no treatment that will fix your symptoms at this time. Please take Motrin 600 mg every 6 hours and/or Tylenol every 6 hours for pain/inflammation. You should also purchase a local lidocaine cream such as "aspercreme with lidocaine" and use per bottle instructions to the affected area. Apply heat to the area as often as you are able. Continue to keep active and avoid prolonged periods of bed rest. Please follow up with your doctor as soon as possible regarding today's ED visit and your back pain. Return to the ED for worsening back pain, fever, weakness or numbness of either leg, or if you develop either (1) an inability to urinate or have bowel movements, or (2) loss of your ability to control your bathroom functions (if you start having "accidents"), or if you develop other new symptoms that concern you.concern you. Referrals: SANDRA MAY MD [Primary Care Provider] - Follow up as needed
[2019-03-30 17:19] VITALS: BP 125/83
== END 2019-03-30 17:32 | disposition home or self-care (01) ==
LOC: ER 12:37
DX: M54.41 Lumbago with sciatica, right side (principal); R51 Headache; Z86.69 Personal history of other diseases of the nervous system and sense organs
CPT/HCPCS: 81025; 81001; J3490 ×4; J1885; J2765; J1100

== ENCOUNTER 2020-04-24 10:38 | Emergency (ER) | payer MEDICAID ==
[2020-04-24] MEDS ORDERED: NORMAL SALINE 1000 ML 1,000 ML IV ONE (11:17)
[2020-04-24] MEDS ORDERED: ONDANSETRON HCL INJ/PF 4 MG/2 ML SDV IV ONE (11:17)
[2020-04-24] MEDS ORDERED: KETOROLAC TROMETHAMINE INJ/PF 30 MG/1 ML SDV IV ONE (11:17)
[2020-04-24] MEDS ORDERED: DIPHENHYDRAMINE HCL 50 MG/ML VIAL IV ONE (11:17)
--- NOTE | 2020-04-24 11:19 | ER Document Report ---
ED Medical Screen (RME) - General Chief Complaint: Headache Stated Complaint: HEADACHE Time Seen by Provider: 04/24/20 11:10 Primary Care Provider: SANDRA MAY MD [Primary Care Provider] - Follow up as needed Mode of Arrival: Ambulatory Information source: Patient Notes: 29-year-old female patient presenting to the emergency department with complaints of intermittent headaches over the last 3 weeks and generalized weakness and malaise that began today. Patient reports mild nausea but denies any vomiting, diarrhea, fever or chills. She states she went to her primary care provider who prescribed 2 different medicines for her headaches, she took them on Wednesday but they made her vomit x1. Patient appears well, nontoxic, no acute distress noted. No focal neurological deficits noted. I have greeted and performed a rapid initial assessment of this patient. A comprehensive ED assessment and evaluation of the patient, analysis of test results and completion of the medical decision making process will be conducted by additional ED providers. I have specifically instructed the patient or family members with the patient to immediately return to any nursing staff should anything change in the patient's condition or with their chief complaint. TRAVEL OUTSIDE OF THE [place] IN LAST 30 DAYS: No - Related Data Allergies/Adverse Reactions: oxycodone HCl [From Percocet] Allergy (Mild, Verified 04/24/20 11:11) rash Past Medical History - Past Medical History Cardiac Medical History: Reports: Hx Hypertension - WITH Denies: Hx Coronary Artery Disease, Hx Heart Attack Pulmonary Medical History: Denies: Hx Asthma, Hx Bronchitis, Hx COPD, Hx Pneumonia Neurological Medical History: Reports: Hx Migraine. Denies: Hx Cerebrovascular Accident, Hx Seizures Renal/ Medical History: Denies: Hx Peritoneal Dialysis Musculoskeltal Medical History: Denies Hx Arthritis Past Surgical History: Reports: Hx Section - x 4, Hx Orthopedic Surgery - c 4-6 fusion, Hx Tubal Ligation - Immunizations Hx Diphtheria, Pertussis, Tetanus Vaccination: No Physical Exam - Vital signs Vitals: Temp Pulse Resp BP Pulse Ox 98.8 F 88 18 129/97 H 100 04/24/20 10:43 04/24/20 10:43 04/24/20 10:43 04/24/20 10:43 04/24/20 10:43 Course - Vital Signs Vital signs: Temp Pulse Resp BP Pulse Ox 98.8 F 88 18 129/97 H 100 11/18/20 10:43 04/24/20 10:43 04/24/20 10:43 04/24/20 10:43 04/24/20 10:43 Doctor's Discharge - Discharge Referrals: SANDRA MAY MD [Primary Care Provider] - Follow up as needed
[2020-04-24 12:05] LABS: ABSOLUTE LYMPHOCYTES (AUTO) 1.4 10^3/uL (0.5-4.7); ABSOLUTE MONOCYTES (AUTO) 0.3 10^3/uL (0.1-1.4); ABSOLUTE NEUT (AUTO) 2.4 10^3/uL (1.7-8.2); BASOPHILS % (AUTO) 0.8 % (0-2); EOSINOPHILS % (AUTO) 1.1 % (0-6); HEMATOCRIT 30.9 % (36.0-47.0); HEMOGLOBIN 9.7 g/dL (12.0-15.5); LYMPHOCYTES % (AUTO) 34.2 % (13-45); MEAN CORPUSCULAR HEMOGLOBIN 22.4 pg (27.0-33.4); MEAN CORPUSCULAR HGB CONC 31.4 g/dL (32.0-36.0); MEAN CORPUSCULAR VOLUME 71 fl (80-97); MONOCYTES % (AUTO) 7.6 % (3-13); PLATELET COUNT 274 10^3/uL (150-450); RED BLOOD COUNT 4.33 10^6/uL (3.72-5.28); RED CELL DISTRIBUTION WIDTH 18.5 % (11.5-14.0); SEGMENTED NEUTROPHILS % (AUTO) 56.3 % (42-78); TOTAL CELLS COUNTED % (AUTO) 100 %; WHITE BLOOD COUNT 4.2 10^3/uL (4.0-10.5)
[2020-04-24 12:16] LABS: APPEARANCE,URINE SLIGHTLY-CLOUDY; BILIRUBIN,URINE NEGATIVE (NEGATIVE); COLOR,URINE YELLOW; GLUCOSE, URINE NEGATIVE (NEGATIVE); KETONES,URINE NEGATIVE (NEGATIVE); LEUKOCYTE ESTERASE,URINE TRACE (NEGATIVE); NITRITE,URINE NEGATIVE (NEGATIVE); PROTEIN,URINE NEGATIVE (NEGATIVE); URINE SPECIFIC GRAVITY 1.023
[2020-04-24 12:21] LABS: ALBUMIN 4.5 g/dL (3.5-5.0); ALKALINE PHOSPHATASE 55 U/L (38-126); ANION GAP 7 (5-19); ASPARTATE AMINO TRANSFERASE 21 U/L (14-36); BILIRUBIN,TOTAL 0.3 mg/dL (0.2-1.3); BLOOD UREA NITROGEN 13 mg/dL (7-20); CALCIUM 9.9 mg/dL (8.4-10.2); CARBON DIOXIDE 25 mmol/L (22-30); CHLORIDE 108 mmol/L (98-107); GLUCOSE 81 mg/dL (75-110); TOTAL PROTEIN 7.7 g/dL (6.3-8.2)
[2020-04-24 13:38] VITALS: BP 113/83
--- NOTE | 2020-04-24 17:28 | ER Document Report ---
Entered by JARON SCHWARZ SCRIBE 04/24/20 2202 Acting as scribe for:BERE HASTINGS MD ED Headache - General Chief Complaint: Headache <24 hrs old Stated Complaint: HEADACHE Time Seen by Provider: 04/24/20 11:10 Primary Care Provider: CALEB BECKHAM, [employer] [NURSE PRACTITIONER] - Follow up as needed Mode of Arrival: Ambulatory Information source: Patient Notes: This 29 year old female patient presents to the emergency department today with complaints of a headache off and on for the last three weeks. Patient went to her PCP for these headaches and she was prescribed Maxalt and Topamax. Patient states she first took these on Wednesday and they worked for her headache but they made her nauseated. Patient states overnight that night she vomited. Patient's headache is back today. TRAVEL OUTSIDE OF THE [place] IN LAST 30 DAYS: No - Related Data Allergies/Adverse Reactions: oxycodone HCl [From Percocet] Allergy (Mild, Verified 04/24/20 11:11) rash Past Medical History - General Information source: Patient - Social History Smoking Status: Never Smoker Cigarette use (# per day): No Chew tobacco use (# tins/day): No Frequency of alcohol use: None Drug Abuse: Marijuana Lives with: Family Family History: Reviewed & Not Pertinent - Past Medical History Cardiac Medical History: Reports: Hx Hypertension - WITH Neurological Medical History: Reports: Hx Migraine Past Surgical History: Reports: Hx Section - x 4, Hx Orthopedic Surgery - c 4-6 fusion, Hx Tubal Ligation - Immunizations Hx Diphtheria, Pertussis, Tetanus Vaccination: No Review of Systems - Review of Systems Constitutional: No symptoms reported EENT: No symptoms reported Cardiovascular: No symptoms reported Respiratory: No symptoms reported Gastrointestinal: See HPI, Nausea, Vomiting Genitourinary: No symptoms reported Female Genitourinary: No symptoms reported Musculoskeletal: No symptoms reported Skin: No symptoms reported Hematologic/Lymphatic: No symptoms reported Neurological/Psychological: See HPI, Headaches -: Yes All other systems reviewed and negative Physical Exam - Vital signs Vitals: Temp Pulse Resp BP Pulse Ox 98.8 F 88 18 129/97 H 100 04/24/20 10:43 04/24/20 10:43 04/24/20 10:43 04/24/20 10:43 04/24/20 10:43 - Notes Notes: Physical Exam: General: Alert, sitting in a dark room for comfort, headache has completely resolved. HEENT: Normocephalic. Atraumatic. PERRL. Extraocular movements intact. Andra pharynx clear. Neck: Supple. Posterior cervical muscles and scalp muscles are tender to palpation, particularly on the left side. Respiratory: No respiratory distress. Clear and equal breath sounds bilaterally. Cardiovascular: Regular rate and rhythm. Abdominal: Normal Inspection. Non-tender. No distension. Normal Bowel Sounds. Back: No gross abnormalities. Extremities: Moves all four extremities. Upper extremities: Normal inspection. Normal ROM. Lower extremities: Normal inspection. No edema. Normal ROM. Neurological: Normal cognition. AAOx4. Normal speech. Psychological: Normal affect. Normal Mood. Skin: Warm. Dry. Normal color. Course - Re-evaluation Re-evalutation: 04/24/20 13:22 The patient received Toradol, Zofran, Benadryl, and IV fluids and her headache completely resolved. She does have some residual tenderness to palpate her posterior cervical muscles and scalp muscles particularly on the left side. I did discuss with the patient trying Compazine, Benadryl, and ibuprofen with a large glass of water at home the next time she has 1 of these headaches and see if that will work better than the Maxalt and Topamax she was prescribed. - Vital Signs Vital signs: Temp Pulse Resp BP Pulse Ox 98.8 F 82 18 113/83 100 04/24/20 10:43 04/24/20 13:36 04/24/20 13:36 04/24/20 13:36 04/24/20 13:36 - Laboratory Result Diagrams: 04/24/20 11:30 04/24/20 11:30 Laboratory results interpreted by me: 04/24/20 04/24/20 04/24/20 11:30 11:30 11:30 Hgb 9.7 L Hct 30.9 L MCV 71 L MCH 22.4 L MCHC 31.4 L RDW 18.5 H Chloride 108 H Urine Urobilinogen 4.0 H Ur Leukocyte Esterase TRACE H Urine Ascorbic Acid 20 H Discharge - Discharge Clinical Impression: Muscle tension headache Condition: Stable Disposition: HOME, SELF-CARE Additional Instructions: Tension Headache Your problem has been diagnosed as muscle tension headache. This very common type of headache occurs because of tightness in the muscles of the head and neck. The cause may be neck or jaw joint problems, but most commonly the cause is emotional stress. The headache may last hours or days. The treatment of uncomplicated tension headaches is rest and pain medication. Often, the newer antiinflammatory pain medications are prescribed, as these also decrease the irritability of the painful tissues. Muscle relaxers, cold packs, or warm packs are sometimes helpful. Anti-anxiety medication or narcotics are sometimes needed temporarily, but are best avoided in the long run. Your doctor has evaluated your headache problem, and finds no evidence of a serious health problem as a cause for the headache. If your headache becomes more severe, or if new symptoms develop (such as fever, stiff neck, vomiting, or decreasing alertness) you should be re-examined by the physician. Try taking the Compazine as prescribed with Benadryl 25 mg, and ibuprofen 600 mg with a large glass of water You have a headache like this. Then go to rest in a cool, dark quiet place. Try to rest today and get plenty of sleep tonight. Follow-up with your primary care provider if not improving. RETURN TO THE EMERGENCY ROOM IF ANY NEW OR WORSENING SYMPTOMS. Prescriptions: Prochlorperazine Maleate [Compazine 10 mg Tablet] 10 mg PO ASDIR PRN #12 tablet PRN Reason: Forms: Return to Work Referrals: CALEB BECKHAM NP [NURSE PRACTITIONER] - Follow up as needed I personally performed the services described in the documentation, reviewed and edited the documentation which was dictated to the scribe in my presence, and it accurately records my words and actions.
== END 2020-04-24 13:38 | disposition home or self-care (01) ==
LOC: ER 10:38
DX: G44.209 Tension-type headache, unspecified, not intractable (principal); R11.2 Nausea with vomiting, unspecified; F12.10 Cannabis abuse, uncomplicated; Z88.6 Allergy status to analgesic agent; Z88.5 Allergy status to narcotic agent
CPT/HCPCS: 99284; 96361; 96374; 96375; 36415; 85025; 81025; 80053; 81001; J1200; J1885; J2405; J7030